=== PATIENT | male | born 1960 | race Native Hawaiian/Other Pacific Islander ===

== ENCOUNTER 2020-12-26 15:53 | Outpatient (CLI) | payer OTHER | END 2020-12-26 22:24 | disposition home or self-care (01) | LOC: RESP 15:53 | PROVIDERS: ATTEND Nurse Practitioner | DX: R55 Syncope and collapse (principal); R00.2 Palpitations | CPT/HCPCS: 93225 ==

== ENCOUNTER 2021-03-22 09:48 | Outpatient (CLI) | payer OTHER | END 2021-03-22 19:06 | disposition home or self-care (01) | LOC: RESP 09:48 | PROVIDERS: ATTEND Nurse Practitioner | DX: R55 Syncope and collapse (principal); I10 Essential (primary) hypertension; R00.2 Palpitations ==